=== PATIENT | male | born 1965 | race Caucasian/White ===

== ENCOUNTER 2023-08-29 11:07 | Inpatient (IN) | payer OTHER ==
[~2023-08-29] VITALS: Ht 170.2 cm; Wt 77.1 kg
[~2023-08-29 11:07] MED LIST: CEFT2VIA64 IV
[2023-08-29] MEDS: IV NS 0.9% 1,000 ML BAG IV ONE (11:20)
[2023-08-29] MEDS: VANCOMYCIN 1 GM in IV D5W 250 ML IV ONE (11:23)
[2023-08-29] MEDS: MEROPENEM 1 G in IV NS 0.9% 100 ML IV ONE (11:25)
[2023-08-29 12:00] LABS: BASOPHILS % (AUTO) 0.2 % (0.0-2.0); EOSINOPHILS % (AUTO) 0.5 % (0.0-6.0); HEMATOCRIT 27 % (39-51); HEMOGLOBIN 8.8 g/dL (13.5-17.5); LYMPHOCYTES # (AUTO) 0.6 K/uL (0.8-4.8); LYMPHOCYTES % (AUTO) 7.3 % (20.0-44.0); MEAN CORPUSCULAR HEMOGLOBIN 29 PG (26.0-33.0); MEAN CORPUSCULAR HGB CONC 32 g/dl (31.0-36.0); MEAN CORPUSCULAR VOLUME 90 fL (80-96); MONOCYTES % (AUTO) 12.9 % (2.0-12.0); NEUTROPHILS % (AUTO) 79.1 % (43.0-81.0); PLATELET COUNT (AUTO) 174 K/uL (150-450); RED BLOOD CELL COUNT(AUTO) 3.03 MIL/uL (4.5-6.0); RED CELL DISTRIBUTION WIDTH 18.2 % (11.5-15.0); WHITE BLOOD COUNT (AUTO) 7.6 K/uL (4.3-11.0)
[2023-08-29 12:07] LABS: CARBON DIOXIDE 28 mmol/L (21-32); CHLORIDE 101 mmol/L (98-107); CREATININE 0.8 mg/dL (0.6-1.3); GLUCOSE 222 mg/dL (74-106); POTASSIUM 5.4 mmol/L (3.5-5.1); SODIUM SERUM 132 mmol/L (136-145); UREA NITROGEN, BLOOD 29 mg/dL (7-18)
[2023-08-29 12:16] LABS: LACTIC ACID 0.5 mmol/L (0.4-2.0)
[2023-08-29 12:18] LABS: ALANINE AMINOTRANSFERASE 15 U/L (12-78); ALBUMIN 1.8 g/dL (3.4-5.0); ALKALINE PHOSPHATASE 237 U/L (46-116); ASPARTATE AMINOTRANSFERASE 14 U/L (15-37); BILIRUBIN,DIRECT 0.1 mg/dL (0.0-0.2); BILIRUBIN,TOTAL 0.2 mg/dL (0.2-1.0); CALCIUM, SERUM 7.6 mg/dL (8.5-10.1); TOTAL PROTEIN, SERUM 6.9 g/dL (6.4-8.2)
[2023-08-29 12:19] LABS: INR 1.12 (0.91-1.10); PARTIAL THROMBOPLASTIN TIME 41.7 SEC (24.3-34.3); PROTHROMBIN TIME 11.4 SECS (9.2-11.1)
[2023-08-29] MEDS ORDERED: MORPHINE SULFATE INJ 2 MG/ML DISP.SYRIN IV PRN (13:00)
[2023-08-29] MEDS ORDERED: ALBUTEROL FS 2.5 MG/0.5 ML VIAL.NEB NEB PRN (13:00)
[2023-08-29] MEDS ORDERED: DEXTROSE 50%-WATER 50 ML DISP.SYRIN IV PRN (13:00)
[2023-08-29] MEDS ORDERED: ONDANSETRON HCL/PF 4 MG/2 ML VIAL IVP PRN (13:00)
[2023-08-29] MEDS ORDERED: PANT40SU2 JT (13:08)
[2023-08-29] MEDS ORDERED: TRAM50TA2 JT (13:08)
[2023-08-29] MEDS ORDERED: HYDR-4076 JT (13:08)
[2023-08-29] MEDS ORDERED: NA P133E RC (13:08)
[2023-08-29] MEDS ORDERED: CHLO473M5 PO (13:08)
[2023-08-29] MEDS ORDERED: HEPA50008 SQ (13:08)
[2023-08-29] MEDS ORDERED: BISA10SU11 RC (13:08)
[2023-08-29] MEDS ORDERED: ACET-637 JT (13:08)
[2023-08-29] MEDS ORDERED: EPOE20005 SQ (13:08)
[2023-08-29] MEDS ORDERED: NUTR250L58 JT (13:08)
[2023-08-29] MEDS ORDERED: INSU100V39 SQ (13:08)
[2023-08-29] MEDS ORDERED: ACET325T53 JT (13:08)
[2023-08-29] MEDS ORDERED: LABE100T5 JT (13:08)
[2023-08-29] MEDS ORDERED: POLY17PO4 JT (13:08)
[2023-08-29] MEDS ORDERED: NEOM28OI32 TP (13:08)
[2023-08-29] MEDS ORDERED: MELA3TAB41 JT (13:08)
[2023-08-29] MEDS ORDERED: POVI1MED TP (13:08)
[2023-08-29] MEDS ORDERED: HONE44PA TP (13:08)
[2023-08-29] MEDS ORDERED: POTA20TA29 JT (13:08)
[2023-08-29] MEDS ORDERED: SIME80TA72 JT (13:08)
[2023-08-29] MEDS ORDERED: SENN-261 JT (13:08)
[2023-08-29] MEDS ORDERED: IPRA4AER IH ×2 (13:08)
[2023-08-29] MEDS ORDERED: CLON0.1T JT (13:08)
[2023-08-29] MEDS ORDERED: MAGN400O6 JT (13:08)
[2023-08-29] MEDS ORDERED: ACETAMINOPHEN 650 MG/20.3 ML UDC GT PRN (14:30)
[2023-08-29] MEDS: LINEZOLID RTU BAG 600 MG in PREMIX 1 EA IV SCH (17:29)
[2023-08-29] MEDS: PANTOPRAZOLE 40 MG/PACK PACK JT SCH (17:36)
[2023-08-29] MEDS: CHLORHEXIDINE GLUCONATE 15 ML UDC MM SCH (17:36)
[2023-08-29] MEDS: hydrALAZINE HCL 25 MG TABLET JT SCH (17:37)
[2023-08-29] MEDS: LABETALOL HCL (100MG) 100 MG TABLET GT SCH (17:37)
[2023-08-29] MEDS: BLOOD SUGAR DIAGNOSTIC 1 EACH STRIP IN SCH (18:14)
[2023-08-29] MEDS: MEROPENEM 1 G in IV NS 0.9% 100 ML IV SCH (18:37)
[2023-08-29 19:33] VITALS: BP 145/92; TEMP 98.6; O2SAT 99
[2023-08-29] MEDS: IPRATROPIUM NEB FS 0.5 MG/2.5 ML AMPUL.NEB NEB SCH (19:47)
[2023-08-29] MEDS: ALBUTEROL FS 2.5 MG/3 ML VIAL.NEB NEB SCH (19:47)
[2023-08-29 20:00] VITALS: BP 132/103; TEMP 98.4; O2SAT 100
[2023-08-29] MEDS: INSULIN REGULAR, HUMAN 100 UNIT/ML 3 ML VIAL SQ PRN (23:31)
[2023-08-30] VITALS: BP 97/63; TEMP 98.6; O2SAT 100
[2023-08-30 04:00] VITALS: BP 102/69; TEMP 98.6; O2SAT 100
[2023-08-30 07:00] VITALS: BP 91/60; TEMP 97.5; O2SAT 100
[2023-08-30 07:24] VITALS: O2SAT 100
[2023-08-30 07:36] LABS: BASOPHILS % (AUTO) 0.1 % (0.0-2.0); EOSINOPHILS % (AUTO) 0.2 % (0.0-6.0); HEMATOCRIT 28 % (39-51); HEMOGLOBIN 9.2 g/dL (13.5-17.5); LYMPHOCYTES # (AUTO) 0.8 K/uL (0.8-4.8); LYMPHOCYTES % (AUTO) 11.5 % (20.0-44.0); MEAN CORPUSCULAR HEMOGLOBIN 29 PG (26.0-33.0); MEAN CORPUSCULAR HGB CONC 33 g/dl (31.0-36.0); MEAN CORPUSCULAR VOLUME 88 fL (80-96); MONOCYTES # (AUTO) 0.9 K/uL (0.1-1.30); MONOCYTES % (AUTO) 13.4 % (2.0-12.0); NEUTROPHILS # (AUTO) 5.2 K/uL (1.8-8.9); NEUTROPHILS % (AUTO) 74.8 % (43.0-81.0); PLATELET COUNT (AUTO) 195 K/uL (150-450); RED BLOOD CELL COUNT(AUTO) 3.14 MIL/uL (4.5-6.0); RED CELL DISTRIBUTION WIDTH 18.7 % (11.5-15.0)
[2023-08-30] MEDS ORDERED: VITAL AF 1.2 1,000 ML BOTTLE GT PRN (08:30)
[2023-08-30 08:59] LABS: ALBUMIN 1.8 g/dL (3.4-5.0); BILIRUBIN,TOTAL 0.4 mg/dL (0.2-1.0); CALCIUM, SERUM 7.9 mg/dL (8.5-10.1); CREATININE 0.7 mg/dL (0.6-1.3); MAGNESIUM 1.7 mg/dL (1.8-2.4); PHOSPHORUS 3.4 mg/dL (2.5-4.9); POTASSIUM 4.2 mmol/L (3.5-5.1); TOTAL PROTEIN, SERUM 7.2 g/dL (6.4-8.2)
[2023-08-30 09:00] VITALS: BP 91/60
[2023-08-30] MEDS: POLYETHYLENE GLYCOL 3350 17 GM POWD.PACK GT SCH (10:19)
[2023-08-30] MEDS ORDERED: IV D5/ 0.9% NACL 1,000 ML IV PRN (10:30)
[2023-08-30] MEDS ORDERED: IOHEXOL-300 100 ML VIAL IV ONE (11:30)
[2023-08-30] MEDS ORDERED: IV NS 0.9% 250 ML IV ONE (11:30)
[2023-09-02] MEDS ORDERED: EPOETIN ALFA (20,000 UNIT) 20,000 UNIT/ML VIAL SQ SCH
== END 2023-08-30 12:00 | DRG 143 ==
LOC: ER 11:17 → TELE 14:10
PROVIDERS: ADMIT Internal Medicine; ATTEND Nurse Practitioner Family
PROC: 5A1945Z Respiratory Ventilation, 24-96 Consecutive Hours (ICD-10-PCS; principal; 2023-08-29)
DX: J95.01 Hemorrhage from tracheostomy stoma (principal); G93.49 Other encephalopathy; J18.9 Pneumonia, unspecified organism; D68.9 Coagulation defect, unspecified; I95.9 Hypotension, unspecified; D62 Acute posthemorrhagic anemia; E87.1 Hypo-osmolality and hyponatremia; I48.20 Chronic atrial fibrillation, unspecified; J96.11 Chronic respiratory failure with hypoxia; Z99.11 Dependence on respirator [ventilator] status; Z93.1 Gastrostomy status; E66.9 Obesity, unspecified; E87.5 Hyperkalemia; I10 Essential (primary) hypertension; R13.10 Dysphagia, unspecified; Z79.01 Long term (current) use of anticoagulants; Z86.79 Personal history of other diseases of the circulatory system; Y83.3 Surgical operation with formation of external stoma as the cause of abnormal reaction of the patient, or of later complication, without mention of misadventure at the time of the procedure; Y92.129 Unspecified place in nursing home as the place of occurrence of the external cause; E11.9 Type 2 diabetes mellitus without complications; Z68.26 Body mass index [BMI] 26.0-26.9, adult; Z95.828 Presence of other vascular implants and grafts; Z79.4 Long term (current) use of insulin; Z66 Do not resuscitate; Z88.1 Allergy status to other antibiotic agents; J90 Pleural effusion, not elsewhere classified
CPT/HCPCS: 31720; 36415; 71045-TC; 80048-TC; 80053-TC; 80076-TC; 82962-TC; 83605-TC; 83735-TC; 84100-TC; 84484-TC; 85025-TC; 85730-TC; 87040-TC; 87081-TC; 87086-TC; 94002-TC; 94003-TC; 94760-TC; 94762-TC; 94799-TC; A4216; A4217; A4223; G0378; J1815; J2020; J2185; J3370; J7030; J7040; J7050; J7060; Q9967